=== PATIENT | male | born 1965 | race Two or more races ===

== ENCOUNTER 2021-10-02 10:48 | Emergency (ER) | payer MEDICAID ==
[~2021-10-02] VITALS: Ht 165.1 cm; Wt 84.3 kg
[2021-10-02] MEDS ORDERED: AMOX-277 PO (11:36)
[2021-10-02] MEDS ORDERED: ACET-1158 PO (11:36)
[2021-10-02] MEDS ORDERED: PRED20TA2 PO (11:36)
[2021-10-02 12:08] VITALS: BP 145/80
[2021-10-02] MEDS ORDERED: DOXY-332 PO (14:21)
== END 2021-10-02 14:45 | disposition home or self-care (01) ==
LOC: ER 10:48
DX: U07.1 COVID-19 (principal); J06.9 Acute upper respiratory infection, unspecified; R07.89 Other chest pain; Z90.89 Acquired absence of other organs
CPT/HCPCS: 36415; 71045